=== PATIENT | male | born 1955 | race Caucasian/White ===

== ENCOUNTER → 2017-05-05 | Outpatient (CLI) | payer OTHER ==
--- NOTE | 2017-05-06 17:20 | CT ---
EXAM DESCRIPTION: Soft Tissue Neck CLINICAL HISTORY: 61 years Male, LYMPHADENOPATHY COMPARISON: None. TECHNIQUE: This exam was performed according to our departmental dose-optimization program, which includes automated exposure control, adjustment of the mA and/or kV according to patient size and/or use of iterative reconstruction technique. CT of the neck with MPR reformatted images was obtained. FINDINGS: Soft tissue structures of the neck are essentially normal with numerous normal to upper normal bilateral lymph nodes without evidence of conglomerate or necrotic lymphadenopathy to suggest malignancy or metastatic disease. These are most prominent near the vascular sheath in the jugulodigastric course with normal appearance of the parotid and submandibular glands and normal appearance of the thyroid gland. The thoracic inlet and pulmonary apices and region of the larynx is normal with a normal appearance of the epiglottis and base of the tongue. Deep soft tissues of the skull base and the parapharyngeal space is normal in appearance. Multilevel degenerative disc disease most prominently at C5-6 with disc narrowing and posterior ridging and marked anterior spurring is present. Milder changes at the other levels with facet arthropathy evident predominantly involving the right upper neck supraclavicular region IMPRESSION: 1. Minimal bilateral cervical lymphadenopathy in the normal to upper normal range without conglomerate or necrotic or worrisome adenopathy for metastatic disease or tumor. 2. Moderate degenerative disc disease and facet arthropathy of the cervical spine. Electronically signed by: John Franks MD 05/06/2017 5:19 PM CDT
== END ==
LOC: CT 08:00
PROVIDERS: ATTEND Family Medicine
DX: R59.9 Enlarged lymph nodes, unspecified (principal); M50.30 Other cervical disc degeneration, unspecified cervical region

== ENCOUNTER → 2019-08-07 | Outpatient (CLI) | payer BC | LOC: GMA MATASK 10:47 | PROVIDERS: ATTEND Family Medicine | DX: Z00.00 Encounter for general adult medical examination without abnormal findings (principal); Z12.5 Encounter for screening for malignant neoplasm of prostate ==

== ENCOUNTER 2020-11-10 14:19 | Observation (INO) | payer BC ==
--- NOTE | 2020-11-10 14:56 | RAD ---
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 No prior films are available for comparison. The lung volume is decreased. The cardiomediastinal silhouette demonstrate to be unremarkable. The heart is not enlarged. The thoracic aorta is unremarkable. There are no pleural effusions. Bilateral linear areas of opacities are noted within the right midlung zone, left lower lung zone suggesting the possibility of interstitial infiltrates minimal alveolar component is suggested within the left lung base suggesting the possibility of viral- Covid 19 pneumonia. The rest of the soft tissue and bony structures demonstrate to be unremarkable. IMPRESSION: SLIGHT DECREASED LUNG VOLUME. ELEVATION RIGHT HEMIDIAPHRAGM. BILATERAL INTERSTITIAL AND MINIMAL ALVEOLAR INFILTRATES WITHIN THE RIGHT MID LUNG AND LEFT LOWER LUNG ZONE SUGGESTING THE POSSIBILITY OF A INTERSTITIAL LUNG DISEASE AND/OR VIRAL -COVID 19 PNEUMONIA Electronically signed by: Troy Higuera MD 11/10/2020 2:[address] ROLLER ENGINEER
[2020-11-10] MEDS ORDERED: AZITHROMYCIN IV 500 MG in SODIUM CHLORIDE 0.9% 250ML 250 ML IVPB ONE (15:45)
[2020-11-10] MEDS ORDERED: cefTRIAXone SODIUM 1 GM in SODIUM CHL 0.9% 50ML MIN-BAG+ 50 ML IVPB ONE (15:45)
[2020-11-10] MEDS ORDERED: REMDESIVIR 200 MG in SODIUM CHLORIDE 0.9% 250ML 250 ML IVPB ONE (15:46)
[2020-11-10] MEDS ORDERED: DEXAMETHASONE INJ 4 MG/ML VIAL IV ONE (15:46)
--- NOTE | 2020-11-10 16:12 | ED.PDOC ---
History of Present Illness - General Chief Complaint: Respiratory Problem Stated Complaint: cough, fatigue Time Seen by Provider: 11/10/20 14:22 Source: patient Exam Limitations: no limitations - History of Present Illness Initial Comments: The patient is a 65-year-old male brought to the emergency room secondary to shortness of breath and cough. The patient was diagnosed with coronavirus about 8 to 10 days ago. Symptoms have slowly progressed for the patient. He was seen in outpatient clinic with oxygen saturations at around 90% while awake and sitting. He does have a very frequent cough. He does have scattered rales and rhonchi. No significant increased work of breathing at this point however. Low-grade fevers apparently. No nausea or vomiting. Timing/Duration: 1 week Severity: moderate Improving Factors: nothing Worsening Factors: nothing Associated Symptoms: cough, malaise, shortness of breath Allergies/Adverse Reactions: Allergies NO KNOWN ALLERGY Allergy (Verified 11/10/20 15:12) Home Medications: Ambulatory Orders Allopurinol 300 mg PO DAILY 11/10/20 Amlodipine Besylate [Norvasc] 10 mg PO DAILY 11/10/20 Dulaglutide [Trulicity] 1.5 mg 11/10/20 Empagliflozin [Jardiance] 25 mg PO DAILY 11/10/20 Glimepiride 2 mg PO DAILY 11/10/20 Lisinopril 40 mg PO DAILY 11/10/20 Metformin HCl [Metformin Hydrochloride] 1,000 mg PO DAILY 11/10/20 Review of Systems - Review of Systems Constitutional: States: malaise EENTM: States: no symptoms reported Respiratory: States: cough, short of breath Cardiology: States: no symptoms reported Gastrointestinal/Abdominal: States: no symptoms reported Genitourinary: States: no symptoms reported Musculoskeletal: States: no symptoms reported Skin: States: no symptoms reported Neurological: States: headache Endocrine: States: no symptoms reported All other Systems: No Change from Baseline Past Medical History (General) - Patient Medical History Hx Seizures: No Hx Stroke: No Hx Dementia: No Hx Asthma: No Hx of COPD: No Hx Cardiac Disorders: No Hx Congestive Heart Failure: No Hx Pacemaker: No Hx Hypertension: Yes Hx Thyroid Disease: No Hx Diabetes: Yes Hx Gastroesophageal Reflux: Yes Hx Renal Disease: No Hx Cancer: Yes Hx of HIV: No Hx MRSA: No - Vaccination History Hx Tetanus, Diphtheria Vaccination: Yes Hx Influenza Vaccination: Yes Hx Pneumococcal Vaccination: Yes - Social History Hx Tobacco Use: No Hx Alcohol Use: Yes Family Medical History - Family History Father Family History: Unknown Living Status: Unknown Physical Exam - Physical Exam General Appearance: Alert, Ill Appearing Eye Exam: bilateral normal Ears, Nose, Throat: hearing grossly normal, normal pharynx Neck: non-tender, supple Respiratory: no respiratory distress, no accessory muscle use, rales, rhonchi Cardiovascular/Chest: normal peripheral pulses, no edema, tachycardia Peripheral Pulses: radial,right: 2+, radial,left: 2+ Gastrointestinal/Abdominal: non tender, soft Rectal Exam: deferred Back Exam: no CVA tenderness, no vertebral tenderness Extremity: normal range of motion, non-tender, normal inspection, normal capilla ry refill 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 He is also symptomatic from the shortness of breath from it. Due to this, the changes in the x-ray and the elevated inflammatory markers, the patient is being brought in for more aggressive therapy. He has been started on remdesivir, azithromycin, dexamethasone, Rocephin for now. He will likely require some supplemental oxygen while he sleeps. Admit for continued care. nia conrad [id number] - Results/Orders Results/Orders: Laboratory Tests 11/10/20 11/10/20 11/10/20 14:58 14:58 14:58 WBC 4.7 L RBC 5.34 Hgb 15.0 Hct 45.2 MCV 84.8 MCH 28.2 MCHC 33.2 RDW 14.3 Plt Count 217 MPV 7.5 Absolute Neuts (auto) 2.70 Absolute Lymphs (auto) 1.20 Absolute Monos (auto) 0.70 Absolute Eos (auto) 0.00 Absolute Basos (auto) 0.00 Neutrophils % 58.3 Lymphocytes % 26.3 Monocytes % 14.8 H Eosinophils % 0.1 L Basophils % 0.5 PT 10.3 INR 1.04 PTT (SP) 28.2 Fibrinogen D-Dimer, Quantitative 624.0 H* Sodium 141 Potassium 4.2 Chloride 101 Carbon Dioxide 26 Anion Gap 18.2 H BUN 22 H Creatinine 1.12 BUN/Creatinine Ratio 19.6 Random Glucose 72 Serum Osmolality 283.1 Lactic Acid Calcium 9.5 Magnesium 1.9 Ferritin Total Bilirubin 0.5 AST 23 ALT 23 Alkaline Phosphatase 41 L LD Total Creatine Kinase 42 CK-MB (CK-2) 0.8 Troponin I < 0.02 C-Reactive Protein B-Natriuretic Peptide < 15.0 Serum Total Protein 8.1 Albumin 4.0 Globulin 4.1 H Albumin/Globulin Ratio 1.0 L TSH 2.60 11/10/20 11/10/20 11/10/20 14:58 14:58 14:58 WBC RBC Hgb Hct MCV MCH MCHC RDW Plt Count MPV Absolute Neuts (auto) Absolute Lymphs (auto) Absolute Monos (auto) Absolute Eos (auto) Absolute Basos (auto) Neutrophils % Lymphocytes % Monocytes % Eosinophils % Basophils % PT INR PTT (SP) Fibrinogen 428 H D-Dimer, Quantitative Sodium Potassium Chloride Carbon Dioxide Anion Gap BUN Creatinine BUN/Creatinine Ratio Random Glucose Serum Osmolality Lactic Acid 1.4 Calcium Magnesium Ferritin 130.8 Total Bilirubin AST ALT Alkaline Phosphatase LD Total Creatine Kinase CK-MB (CK-2) Troponin I C-Reactive Protein B-Natriuretic Peptide Serum Total Protein Albumin Globulin Albumin/Globulin Ratio TSH 11/10/20 14:58 WBC RBC Hgb Hct MCV MCH MCHC RDW Plt Count MPV Absolute Neuts (auto) Absolute Lymphs (auto) Absolute Monos (auto) Absolute Eos (auto) Absolute Basos (auto) Neutrophils % Lymphocytes % Monocytes % Eosinophils % Basophils % PT INR PTT (SP) Fibrinogen D-Dimer, Quantitative Sodium Potassium Chloride Carbon Dioxide Anion Gap BUN Creatinine BUN/Creatinine Ratio Random Glucose Serum Osmolality Lactic Acid Calcium Magnesium Ferritin Total Bilirubin AST ALT Alkaline Phosphatase LD Total 161 Creatine Kinase CK-MB (CK-2) Troponin I C-Reactive Protein 7.3 H B-Natriuretic Peptide Serum Total Protein Albumin Globulin Albumin/Globulin Ratio TSH Chest x-ray shows scattered interstitial infiltrates consistent with coronavirus pneumonia. EKG shows sinus tachycardia 107 bpm. Normal axis. Normal R wave progression. No ST segment or T wave changes indicative of acute ischemia. Normal QT interval. - EKG/XRAY/CT CT Ordered: No Departure - Departure Clinical Impression: Pneumonia due to COVID-19 virus Disposition: Admit Patient Departure Forms: ED Discharge - Pt. Copy, Patient Portal Self Enrollment Referrals: Reza Harrington MD [Primary Care Provider] - 1-2 Weeks Home Medications: Ambulatory Orders Allopurinol 300 mg PO DAILY 11/10/20 Amlodipine Besylate [Norvasc] 10 mg PO DAILY 11/10/20 Dulaglutide [Trulicity] 1.5 mg 11/10/20 Empagliflozin [Jardiance] 25 mg PO DAILY 11/10/20 Glimepiride 2 mg PO DAILY 11/10/20 Lisinopril 40 mg PO DAILY 11/10/20 Metformin HCl [Metformin Hydrochloride] 1,000 mg PO DAILY 11/10/20 Decision To Admit - Decistion To Admit Decision to Admit Reason: Medical Nature Decision to Admit Date: 11/10/20 Decision to Admit Time: 16:14
--- NOTE | 2020-11-10 16:21 | HP ---
SUPERVISING PHYSICIAN: Reza Harrington MD CHIEF COMPLAINT: Cough, fatigue. DIAGNOSES: Covid-19 on 11/05/20 HISTORY OF PRESENT ILLNESS: Mr. Hong is a 65 year-old male patient who was sent to the Emergency Room after being seen in the clinic for some shortness of breath and cough. He was diagnosed on November 05 with Covid in [place], [place]. Over the last several days he slowly progressed and worsened in his symptoms becoming shortness of breath. It was noted in the clinic oxygen saturation was in the low 90s and mid 80s on room air. He is also running a low grade fever and in the clinic was noted to be running a fever of 100.7. Chest x-ray on admission to the Emergency Room showed slight decreased lung volume and elevation of the right diaphragm with bilateral interstitial minimal alveolar infiltrates within the right mid lung and left lower lung zone suggesting the possibility of interstitial lung disease and viral Covid pneumonia. His laboratory studies showed a had a white count of 4,700 without a left shift. Coagulation studies showed D-dimer was elevated at 624. Chemistries showed liver functions all within normal limits. Electrolytes were normal. C-reactive protein elevated at 7.3, BNP normal as well as troponin. 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 Given his multiple comorbidities and recent diagnosis of Covid and findings on chest x-ray along with showing hypoxia on room air. He is now going to be admitted for initiation and treatment for Covid pneumonia. He is admitted in stable condition. PAST MEDICAL HISTORY: 1. 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 2. Hypertension. 3. Hypercholesterolemia. 4. Complicated cyst of the kidney. 5. Gastroesophageal reflux disease. 6. Diabetes mellitus type 2. PAST SURGICAL HISTORY: 1. Retroperitoneal mass removed in 2016. 2. Resection of a stage 1 leiomyosarcoma in the left renal vein. CURRENT MEDICATIONS: 1. Nexium 40 mg daily. 2. Metformin 1000 mg b.i.d. 3. Glimepiride 2 mg b.i.d. 4. Citracal Plus, 1 tablet b.i.d. 5. Trulicity 1/2 mg weekly, injected. 6. Allopurinol 300 mg daily. 7. Norvasc 10 mg daily. 8. Giardia 25 mg daily. 9. Lisinopril 40 mg daily. ALLERGIES: No known allergies. FAMILY HISTORY: Father with a history of hypertension and previous CVA. Mother secondary to complications from hypertension. He has a brother who has hypertension and type 2 diabetes. 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 He is and lives in [place]. He has never smoked but he does have a history of using smokeless tobacco and quit in 2004. There is no mention of any illicit drug or alcohol usage. REVIEW OF SYSTEMS: CONSTITUTIONAL: Positive for general malaise, fevers, fatigue. Temperature noted to be 100.7. HEENT: Positive for nasal congestion and frequent rhinorrhea. Negative for sore throat, earaches, vision changes or headaches. CHEST: Positive for increasing shortness of breath. HEART: Denies chest pain, palpitations or syncopal episodes. ABDOMEN: Denies nausea, vomiting, diarrhea or constipation, abdominal pain. GENITOURINARY: Denies dysuria, hematuria or polyuria. MUSCULOSKELETAL: Positive for general malaise. SKIN: No reported lesions, rashes, moles. He does have a history of previous skin cancer. NEUROLOGIC: Positive for increasing weakness, negative for headaches, syncopal episodes, ataxia, seizures. PHYSICAL EXAMINATION: VITAL SIGNS: Initially in the Emergency Room, oxygen saturation in the low 90s on room air at rest. Initial blood pressure 161/91, respirations 18, heart rate 106. Temperature 98.3. GENERAL: The patient does appear to be ill but is alert and does not show to be in any acute distress. HEENT: Tympanic membranes clear bilaterally. Oropharynx is pink, moist, without lesions. NECK: Supple, non-tender, full range of motion. No jugular venous distention. CHEST: Lung sounds diminished toward the bases, no obvious rhonchi, rales, or wheezes. CARDIOVASCULAR: Regular rate and rhythm but showing to be tachycardic on bedside monitor. ABDOMEN: Soft, non-tender, positive bowel sounds. EXTREMITIES: Without cyanosis, clubbing, or edema. RECTAL: Exam deferred. BACK: No CVA or vertebral tenderness. NEUROLOGIC: Cranial nerves II through XII grossly intact. Facial features were symmetrical. Extraocular movements within normal limits. He was oriented x3. SKIN: Warm, pink and dry. LABORATORY: White count 4,700, hemoglobin 15.0, hematocrit 45.2, platelet count 217,000, differential did show to be without a left shift. Coagulation studies showed slightly elevated D-dimer at 624. Fibrinogen elevated at 428. PT/PTT normal. Chemistries showed normal electrolytes. He did have an elevated anion gap at 18.2 with BUN 22, creatinine 1.12, lactic acid normal at 1.4, magnesium normal at 1.9, calcium normal at 9.5. Liver functions within normal limits. C- reactive protein elevated at 7.3, TSH normal at 2.60. Blood cultures were collected. RADIOLOGY: Chest x-ray per radiology interpretation showed bilateral interstitial alveolar infiltrates within the right mid lung and left lower lung zone suggesting the possibility of interstitial lung disease and/or viral Covid- 19 pneumonia. ASSESSMENT: 1. Covid-19 pneumonia. 2. History of stage 1 leiomyosarcoma in the left renal vein. 3. Hypertension. 4. Hypercholesterolemia. 5. Diabetes mellitus type 2. 6. History of complicated cyst of the kidney. 7. Gastroesophageal reflux disease. PLAN: Mr. Hong is going to be admitted for initiation of treatment for Covid pneumonia. He will be on Remdesivir, Rocephin, azithromycin, Decadron, Align, Protonix or a PPI, albuterol handheld inhalers along with aggressive pulmonary hygiene. We will follow his lab as per protocol. He will be on a sliding scale per insulin protocol. We will resume his home medications as soon as they are verified appropriate to care. I would anticipate his length of stay to be 2 to 3 days and will work to titrate his oxygen to keep his 02 at least above 93%. Until we can transition patient to outpatient management, we will continue to monitor and treat as needed. #[id number] [facility]
[2020-11-10] MEDS ORDERED: GLUCAGON INJ 1 MG VIAL SUBCU PRN (19:03)
[2020-11-10] MEDS ORDERED: MAGNESIUM HYDROXIDE 30 ML UD PO PRN (19:03)
[2020-11-10] MEDS ORDERED: SODIUM CHLORIDE 0.9% (FLUSH) 10 ML SYG IV PRN (19:03)
[2020-11-10] MEDS ORDERED: DEXTROSE 50% 25 GM/50 ML SYG IV PRN (19:03)
[2020-11-10] MEDS ORDERED: ONDANSETRON INJ 4 MG/2 ML VIAL IV PRN (19:03)
[2020-11-10] MEDS ORDERED: ACETAMINOPHEN 325 MG TAB PO PRN (19:03)
[2020-11-10] MEDS ORDERED: ALBUTEROL INHALER 64 PUFF/8GM INH PRN (19:08)
[2020-11-10] MEDS ORDERED: IV SET AND CAP CHANGE INJ INJ SCH (19:30)
[2020-11-10] MEDS ORDERED: metFORMIN HCL 500 MG TAB ONE (19:56)
[2020-11-10] MEDS: GLIMEPIRIDE 2 MG TAB PO SCH (20:48)
[2020-11-10] MEDS: NON-FORMULARY MEDICATION 1 EA MIS (Metformin Hcl [Metformin Hydrochloride] 1,000 MG) PO SCH (20:48)
[2020-11-10] MEDS: ALBUTEROL INHALER 64 PUFF/8GM INH SCH (20:58)
[2020-11-10] MEDS ORDERED: ENOXAPARIN SODIUM 40 MG/0.4 ML SYG SUBCU SCH (21:00)
[2020-11-10] MEDS: INSULIN LISPRO 100 UNITS/ML PEN SUBCU SCH (21:10)
[2020-11-11] MEDS ORDERED: OMEPRAZOLE CAP 20 MG CAP PO SCH (06:30)
[2020-11-11] MEDS: ALBUTEROL INHALER 64 PUFF/8GM INH SCH ×2 (08:25→13:35)
[2020-11-11] MEDS ORDERED: cefTRIAXone SODIUM 1 GM in SODIUM CHL 0.9% 50ML MIN-BAG+ 50 ML IVPB SCH (09:00)
[2020-11-11] MEDS ORDERED: NON-FORMULARY MEDICATION 1 EA MIS (Empagliflozin [Jardiance] 25 MG) PO SCH (09:00)
[2020-11-11] MEDS ORDERED: LISINOPRIL 10 MG TAB PO SCH (09:00)
[2020-11-11] MEDS ORDERED: ALLOPURINOL 300 MG TAB PO SCH (09:00)
[2020-11-11] MEDS ORDERED: BIFIDOBACTERIUM INFANTIS 4 MG CAP PO SCH (09:00)
[2020-11-11] MEDS ORDERED: DEXAMETHASONE INJ 10 MG/ML VIAL IV SCH (09:00)
[2020-11-11] MEDS ORDERED: amLODIPine BESYLATE 5 MG TAB PO SCH (09:00)
[2020-11-11] MEDS ORDERED: GLIMEPIRIDE 2 MG TAB PO SCH (09:15)
[2020-11-11] MEDS ORDERED: metFORMIN HCL 500 MG TAB PO SCH (09:15)
[2020-11-11] MEDS: INSULIN LISPRO 100 UNITS/ML PEN SUBCU SCH ×2 (09:58→12:42)
[2020-11-11] MEDS ORDERED: AZITHROMYCIN IV 500 MG in SODIUM CHLORIDE 0.9% 250ML 250 ML IVPB SCH (10:00)
[2020-11-11] MEDS: NON-FORMULARY MEDICATION 1 EA MIS (Metformin Hcl [Metformin Hydrochloride] 1,000 MG) PO SCH (10:25)
[2020-11-11] MEDS: GLIMEPIRIDE 2 MG TAB PO SCH (10:25)
[2020-11-11] MEDS ORDERED: REMDESIVIR 100 MG in SODIUM CHLORIDE 0.9% 250ML 250 ML IVPB SCH (12:00)
[2020-11-11 14:13] VITALS: O2SAT 92
[2020-11-11 15:23] VITALS: BP 140/80; TEMP 97.4
--- NOTE | 2020-11-12 11:03 | DS ---
SUPERVISING PHYSICIAN: Marvin Rodriguez MD ADMISSION DIAGNOSIS: 1. COVID-19 pneumonia. 2. History of stage 1 leiomyosarcoma in the left renal vein. 3. Hypertension. 4. Hypercholesterolemia. 5. Diabetes mellitus, type 2. 6. History of complicated cyst of the kidney. 7. Gastroesophageal reflux disease. DISCHARGE DIAGNOSIS: 1. COVID-19 pneumonia. 2. History of stage 1 leiomyosarcoma in the left renal vein. 3. Hypertension. 4. Hypercholesterolemia. 5. Diabetes mellitus, type 2. 6. History of complicated cyst of the kidney. 7. Gastroesophageal reflux disease. REASON FOR HOSPITALIZATION: Mr. Hong is a 65 year-old male patient who was sent to the Emergency Room after being seen in the clinic for some shortness of breath and cough. He was diagnosed on November 05 with COVID in [place], [place]. Over the last several days he slowly progressed and worsened in his symptoms becoming shortness of breath. It was noted in the clinic oxygen saturation was in the low 90s and mid 80s on room air. He is also running a low grade fever and in the clinic was noted to be running a fever of 100.7. Chest x-ray on admission to the Emergency Room showed slight decreased lung volume and elevation of the right diaphragm with bilateral interstitial minimal alveolar infiltrates within the right mid lung and left lower lung zone suggesting the possibility of interstitial lung disease and viral COVID pneumonia. His laboratory studies showed a had a white count of 4,700 without a left shift. Coagulation studies showed D-dimer was elevated at 624. Chemistries showed liver functions all within normal limits. Electrolytes were normal. C-reactive protein elevated at 7.3, BNP normal as well as troponin. 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 Given his multiple comorbidities and recent diagnosis of COVID and findings on chest x-ray along with showing hypoxia on room air. He is now going to be admitted for initiation and treatment for COVID pneumonia. He is admitted in stable condition. LABORATORY: White count on discharge was 3,600. No left shift was noted. CBC showed hemoglobin 14, hematocrit 43.0, platelet count 209,000. Initially elevated D-dimer, but normalized to 258 prior to discharge. Discharge electrolytes were within normal limits. BUN 21, creatinine 1.0. Liver functions were all within normal limits. C-reactive protein was down to 6.9. MICROBIOLOGY: Blood cultures were negative after 24 hours. RADIOLOGY: Chest x-ray on admission per radiologic interpretation showed slight decreased lung volume with elevation of right hemidiaphragm with bilateral interstitial minimal alveolar infiltrates within the right midlung and left lower lung zone suggesting possibility of interstitial lung disease and/or viral COVID-19 pneumonia. Please see that report for details. HOSPITAL COURSE: Mr. Hong was admitted from the Emergency Room for initiation of treatment of COVID pneumonia. Initially on admission, he was showing room air saturations in the low 90s and then improving with treatment. Prior to discharge, he was showing saturations of 92-94% on room air with no ambulation desaturations. Temperature 97.4, pulse 90, blood pressure 140/80. He was treated with Remdesivir, Decadron, Rocephin, azithromycin, Lovenox, Align, Protonix. He did show good improvement with aggressive pulmonary hygiene and was showing clinically stable and improved with his vital signs showing to be stable and maintaining room air saturations without any supplementation. PLAN: Mr. Hong is discharged to followup with Dr. Harrington in 7 days or sooner as needed. He is to call his office to establish an appointment. He was to resume a diabetic diet as tolerated and increase activity as tolerated. He was encouraged to continue with good bronchial hygiene and incentive spirometry exercises to increase his lung function. Medications prescribed at discharge included: 1. Align 4 mg daily, no refills. 2. Azithromycin 500 mg daily, #2, no refills. 3. Decadron 6 mg daily, #8, no refills. 4. Cefdinir 300 mg twice daily, #16, no refills. 5. Albuterol inhaler 2 puffs as needed, #1 inhaler, no refills. CONDITION ON DISCHARGE: Stable and improved. DISPOSITION: The patient is discharged home. #[id number] [facility]
== END 2020-11-11 15:10 | disposition home or self-care (01) ==
LOC: ER 14:19 → INTOOBSV 16:19 → OBSVTOIN 16:19 → MS 16:19
PROVIDERS: ADMIT Nurse Practitioner Family; ATTEND Nurse Practitioner Family
DX: U07.1 COVID-19 (principal); J12.89 Other viral pneumonia; R09.02 Hypoxemia; I10 Essential (primary) hypertension; E78.00 Pure hypercholesterolemia, unspecified; E11.9 Type 2 diabetes mellitus without complications; N28.1 Cyst of kidney, acquired; K21.9 Gastro-esophageal reflux disease without esophagitis; R00.0 Tachycardia, unspecified; Z85.528 Personal history of other malignant neoplasm of kidney; Z79.84 Long term (current) use of oral hypoglycemic drugs; Z79.899 Other long term (current) drug therapy; Z87.891 Personal history of nicotine dependence; Z82.49 Family history of ischemic heart disease and other diseases of the circulatory system; Z82.3 Family history of stroke; Z83.3 Family history of diabetes mellitus
CPT/HCPCS: 96366; 96367; 96365; 96368; 96375; 96376; 96372; J0696 ×2; J1100 ×2; J7050 ×6; J1650; J0456 ×2; J1815; 85379 ×2; 82553; 80053 ×2; 82948 ×2; 36415 ×3; 85384 ×2; 86140 ×2; 85025 ×2; 82550; 87040 ×2; 82728; 83615 ×2; 83735 ×2; 85730 ×2; 85610; 84443; 84484; 83880; 83605; 71045 ×2; 94664; 94640 ×2; 94762; 99285; 93005; G0378